=== PATIENT | female | born 1990 | race Caucasian/White ===

== ENCOUNTER 2021-04-10 15:18 | Inpatient (IN) ==
[2021-04-10] MEDS ORDERED: NORMAL SALINE 1,000 ML IV ONE (16:17)
--- NOTE | 2021-04-10 16:22 | ERNOTE ---
Abdominal HPI - Narrative Date of Service: 04/10/21 - General Chief Complaint: Abdominal Pain Time Seen by Provider: 04/10/21 15:55 Source: patient, RN notes reviewed Exam Limitations: clinical condition - Immun/Allergies/Home Medications Immunizatons: IMMUNIZATION HX Immunizations Up to Date Yes History of Influenza Vaccine No Hx Pneumococcal Vaccination No Allergies/Adverse Reactions: Allergies No Known Allergies Allergy (Verified 04/10/21 15:37) Home Medications: HOME MEDICATIONS NK 05/07/18 [Last Taken Unknown] - History of Present Illness Narrative: Sophie is a 31 yo female patient who presents to the ER in acute distress hollering out c/o severe abdominal pain and inability to urinate since this morning. Denies and assisted to the restroom with nursing assistance who called out for a bed and assistance. Date (Duration): 04/10/21 Timing: getting worse Quality: severe Activities at Onset: none Modifying Factors - (Improves): Present: other Social History: (Last Reviewed 04/10/21 @ 15:50 by SIA Coronel) Tobacco: Smoking Status: Current every day smoker Physical Exam - Physical Exam General Appearance: Present: alert, severe distress, anxious, crying Head Exam: Present: normal inspection, no evidence of injury Eye Exam: Normal inspection: bilateral, PERRL: bilateral Ears, Nose, Throat: Present: normal ENT inspection Neck: Present: normal inspection, nontender, supple, full range of motion Respiratory: Present: no respiratory distress, normal breath sounds, lungs clear. Absent: stridor Cardiovascular/Chest: Present: normal peripheral pulses - except Pedal Pulses 1+, tachycardia Gastrointestinal/Abdominal: Present: other - Gravid abdomen firm w/cramping c/o. Pelvic Exam: Present: other - fetus present at vaginal opening - See Progress notes. Back Exam: Present: normal range of motion Extremity Exam: Present: normal range of motion, extremity edema - Bilateral pitting edema. Absent: decreased range of motion, calf tenderness, bony tenderness Neurological Exam: Present: alert, oriented Skin Exam: Present: other - Pale . Absent: jaundice, skin rash Progress - Results and Orders Patient's Lab Results:: I have reviewed the patient's lab results. - Vital Signs Patient's Vital Signs:: I have reviewed the patient's vital signs. Vital Signs: Vital Signs 04/10/21 15:33 Temperature 36 C Pulse Rate 130 H Respiratory Rate 18 Blood Pressure 130/75 O2 Sat by Pulse Oximetry 98 - Progress/Reassessment Chief Complaint: Abdominal Pain Progress Note-Subjective: 04/10/21 15:50 Nurse called out for assistance in the bathroom as something was coming out of patient's vagina. Assisted pt. to bed in E-1 and purple colored round anatomy w/excoriated and sloughed skin extruding from vaginal opening. Dr. Saunders called to the bedside and OB staff and provider called by ER staff. Gentle downward pressure w/lubricating gel applied to lower perineum and patient pushed briefly and able to discern that fetus was complete breech w/o umbilical cord protrusion. Patient states she did not know that she was , that she did snort heroin this morning. Patient states that she felt abdominal cramping and was unable to urinate around 6am. Patient states she felt a gush of fluid that was bloody like a period and urine around 6am this morning. 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 Originally pt. stated she did not know if she had been before and clarified that this was her first . IV and fluids verbal order, along with labs. Observed 3+ pitting edema bilateral lower legs, lungs CTA bilaterally. Dr. Crowe arrived, followed by Dr. Manley who assumed care and delivery of fetus estimated prior to delivery to be approximately 30+ weeks. Assisted with patient positioning and pushing per directions of Dr. Crowe and OB staff, lab ordered per directions of Dr. Crowe. 04/10/21 16:30 Dr. Crowe caring for patient and waiting on delivery of placenta. Dr. Burch cared for infant upon delivery. Infant purple waste down on final delivery and remained full purple color w/o heartbeat or respirations. 04/10/21 17:30 Discussed patient case w/Dr. Crowe. w/parents and Nursing staff. Covid test ordered and Dr. Crowe will take patient to the OR since placenta has not delivered. Minimal blood loss present on delivery chucks. 04/10/21 17:45 Patient pale, states pain 7-8/10 vagina and abdomen. OB staff caring for patient. 140/75, 104, 22, SpO2 100% 04/10/21 17:56 OB staff call for assistance with patient reporting increase in blood from vaginal vault. Requested staff to call Dr. Crowe to come to the ER. Pitocin increased to 999mL/hr until Dr. Crowe at the bedside by OB staff per VO OB provider. Patient A&O x3, pale, no respiratory distress, fundus boggy - fundal massage by Nursing staff. Delivery chucks 200-300mL sanguinous fluid observed and Dr. Crowe quickly at bedside. Assisted with patient positioning under Dr. Crowe directions and attempt for patient to push and pass the placenta w/o success. Awaiting COVID test results, Dr. Crowe at bedside and ordered Pitocin at 30 milliunits/min for now. Plan - Plan Plan: DDx: , Spontaneous , Ruptured Uterus, UTI, Appendicitis. See Progress section. Precipitous breech delivery completed by Dr. Crowe. Concerned for eclampsia due to pitting edema and tachycardia discussed with Dr. Crowe, labs drawn and monitored for hemodynamic instability. Departure Clinical Impression: Precipitous delivery care insufficient Qualifiers: Trimester: unspecified trimester Qualified Code(s): O09.30 - Supervision of with insufficient care, unspecified trimester Complete breech presentation Qualifiers: Fetus number: single or unspecified fetus Qualified Code(s): O32.1XX0 - Maternal care for breech presentation, not applicable or unspecified - Departure Disposition: Still a patient Condition: Stable
[2021-04-10] MEDS ORDERED: LIDOCAINE HCL 50 ML VIAL ONE ×2 (16:23→18:10)
[2021-04-10] MEDS ORDERED: fentaNYL CITRATE/PF 50 MCG/ML AMPUL ONE ×2 (16:26→17:10)
[2021-04-10 16:45] LABS: Hematocrit 38.3 % (37.0-47.0); Hemoglobin 12.4 gm/dL (12.5-16.0); Mean Cell Volume 89.5 fl (78-100); Mean Corpuscular Hgb Conc 32.4 g/dl (32-36); Mean Platelet Volume 10.7 fl (8-12.5); Neutrophil # 18.8 K/mm3 (1.3-6.0); Platelet Count 245 K/mm3 (150-450); Red Blood Count 4.28 M/mm3 (4.2-5.4); Red Cell Distribution Width 13.6 % (11.5-14.0); White Blood Count 20.6 K/mm3 (4.0-10.5)
[2021-04-10 16:56] LABS: Albumin * 2.3 gm/dl (3.4-5.0); Anion Gap 16.4 mmol/L (6.8-13.8); BUN/Creatinine Ratio 9.3 (9.0-21.6); Bilirubin, Total 0.3 mg/dL (0.0-1.1); Ca. Corrected For Albumin 8.8 mg/dL (8.4-10.2); Calcium * 7.8 mg/dL (7.9-10.9); Carbon Dioxide 21.6 mmol/L (24-32.6); Magnesium 1.8 mg/dL (1.2-2.8); Total Protein 6.9 gm/dL (6.2-8.2)
[2021-04-10 16:58] LABS: Cocaine Ur Negative (NEGATIVE); Urine Barbiturate Negative (NEGATIVE); Urine PCP Negative (NEGATIVE); Urine THC Negative (NEGATIVE)
[2021-04-10 16:59] LABS: Urine Appearance Clear (CLEAR); Urine Bilirubin Negative (NEGATIVE); Urine Blood Negative /ul (NEGATIVE); Urine Color Yellow; Urine Specific Gravity 1.025 SP.GR. (1.005-1.010)
[2021-04-10 16:59] LABS: Urine Benzodiazepines Positive (NEGATIVE); Urine Opiates Positive (NEGATIVE)
[2021-04-10 17:00] LABS: Urine Bacteria None Seen; Urine Ketone 5 mg/dL (NEGATIVE); Urine Nitrite Negative (NEGATIVE); Urine Protein Negative (NEGATIVE); Urine RBC 0-5 /hpf (0-5); Urine Urobilinogen Normal (NORMAL); Urine WBC 0-5 /hpf (0-5)
[2021-04-10] MEDS ORDERED: fentaNYL CITRATE/PF 50 MCG/ML AMPUL IV ONE (17:03)
[2021-04-10 17:06] LABS: Random Urine Total Protein 19.3 mg/dL (0-12)
[2021-04-10] MEDS ORDERED: LIDOCAINE HCL 20 ML VIAL ONE (17:16)
[2021-04-10] MEDS ORDERED: ROCURONIUM BROMIDE 10 MG/ML VIAL ONE (17:17)
[2021-04-10] MEDS ORDERED: SUCCINYLCHOLINE CHLORIDE 20 MG/ML VIAL ONE (17:17)
[2021-04-10] MEDS ORDERED: NEOSTIGMINE METHYLSULFATE 1 MG/ML VIAL ONE (17:17)
[2021-04-10] MEDS ORDERED: ONDANSETRON HCL/PF 2 MG/ML VIAL ONE (17:17)
[2021-04-10] MEDS ORDERED: GLYCOPYRROLATE 0.2 MG/ML VIAL ONE (17:17)
[2021-04-10] MEDS ORDERED: PROPOFOL VIAL IV ONE (17:17)
[2021-04-10 17:30] LABS: Hemoglobin A1C 5.5 % (3.80-5.60)
--- NOTE | 2021-04-10 17:57 | HP ---
Chief Complaint - Chief Complaint Date of Service: 04/10/21 Time of Service: 17:34 Chief Complaint: abdominal/vaginal pain History of Present Illness: Called stat to ER at 1559 by nurse stating " breech delivery in ER and need you now." 31 yo with unknown LMP presented to ER complaining of severe lower abdominal/vaginal pain.When she was assisted to the bathroom a dark purple bulge was seen between her legs. At that time, it was uncertain whether it was head or buttocks. Patient did not know she was . She states she has not been able to urinate since this morning. She last ate around 0600 this am. She admits to using methamphetamine yesterday and heroin this morning. Shortly after using this am, she had a watery discharge and then began having abdominal pain/cramps. When I arrived at the ER, the ER provider was attending the . The buttocks was delivered to the hips. There was extensive ecchymosis and edema with a 4cm ring of significant caput on the right buttocks of the fetus. I encouraged patient to push and the fetus was delivered to the shoulders. I swept each arm down across the chest and noted head entrapement despite keeping the head flexed and body down. Piper forceps were applied and the head was easily delivered. It took approximately 1-2 minutes to get the forceps applied due to the patient writhing on the ER bed. The fetus was limp with no movement, respirations, or palpable pulse from the umbilical cord. Developer Designer, Dr. Burch was present and thought he might have felt a pulse and so resuscitation was briefly started until it was apparent that the fetus had been for some time. The patient was started on IV pitocin at 20 mu/min after delivery of fetus. The placenta had still not delivered after one hour from , so preparations were made for manual extraction of placenta in OR. Social History: (Last Updated 04/10/21 @ 18:05 by Salomón Crowe DO) Tobacco: Smoking Status: Current every day smoker tobacco type: cigarettes Smoking cigarettes per day: 10 Smoking risk assessment performed?: No Substance Use: substance use type: heroin counseling given: No Review Of Systems (GEN) - Review of Systems Generalized/Overall Review: Present: No Symptoms Reported EENTM: Present: No Symptoms Reported Respiratory: Present: No Symptoms Reported Cardiac: Present: No Symptoms Reported Abdominal: Present: Abdominal Pain Genitourinary: Present: Other - unable to urinate since this am Musculoskeletal: Present: No Symptoms Reported Neurological: Present: No Symptoms Reported Skin: Present: No Symptoms Reported Endocrine: Present: No Symptoms Reported Immunizations: IMMUNIZATION HX Immunizations Up to Date Yes History of Influenza Vaccine No Hx Pneumococcal Vaccination No Allergies/Adverse Reactions: Allergies Allergy/AdvReac Type Severity Reaction Status Date / Time No Known Allergies Allergy Verified 04/10/21 15:37 Home Medications: HOME MEDICATIONS NK 05/07/18 [Last Taken Unknown] Exam - Exam Vital Signs: Vital Signs - Last Taken Temp 36 C 04/10/21 15:33 Pulse 130 H 04/10/21 15:33 Resp 18 04/10/21 15:33 BP 130/75 04/10/21 15:33 Pulse Ox 98 04/10/21 15:33 Constitutional: Present: Alert, Oriented x3, Moderate distress ENT Exam: Present: hearing grossly normal Neck: Present: non-tender Breasts: Present: Exam deferred Respiratory: Present: lungs clear, no respiratory distress Cardiovascular/Chest: Present: tachycardia, edema - bilateral [facility] to [facility] Abdomen: Present: soft, no rebound tenderness, other - Uterus at umbilicus. /Rectal: Present: Other - cervix was fully dilated with body 1[address], presenting in josué breech. Extremity: Present: no calf tenderness, lower extremity edema Skin Exam: Present: warm/dry, no cyanosis, pallor, other - erythematous venous needle tracks on right lower arm. Neurologic: Present: alert, oriented x 3, other - anxious, tearful, and agitated, but trying to be cooperative Appearance: Present: appropriate appearance, impaired insight Eye contact: Present: cooperative, good eye contact Thoughts: Present: normal thought pattern, normal mood /affect - appropriate for situation Diagnostic Studies: Abnormal Lab Results 04/10/21 04/10/21 04/10/21 Range/Units 16:29 16:30 16:30 WBC 20.6 H (4.0-10.5) K/mm3 Hgb 12.4 L (12.5-16.0) gm/dL Immature Gran % (Auto) 0.70 H (0.001-0.429) % Immature Gran # (Auto) 0.14 H (0.000-0.0310) K/mm3 Neutrophils % 91.0 H (42-75.0) % Lymphocytes % 4.6 L (20-51) % Neutrophils # 18.8 H (1.3-6.0) K/mm3 Lymphocytes # 0.94 L (1.5-3.5) k/mm3 Potassium 3.0 L (3.4-4.6) mmol/L Carbon Dioxide 21.6 L (24-32.6) mmol/L Anion Gap 16.4 H (6.8-13.8) mmol/L Random Glucose 130 H (70-110) mg/dL Calcium 7.8 L (7.9-10.9) mg/dL ALT 14 L (19-67) U/L Alkaline Phosphatase 199 H (50-170) U/L Albumin 2.3 L (3.4-5.0) gm/dl U Random Total Protein 19.3 H (0-12) mg/dL Urine Opiates Screen (NEGATIVE) Urine Amphetamine (NEGATIVE) U Benzodiazepines Scrn (NEGATIVE) 04/10/21 Range/Units 16:35 WBC (4.0-10.5) K/mm3 Hgb (12.5-16.0) gm/dL Immature Gran % (Auto) (0.001-0.429) % Immature Gran # (Auto) (0.000-0.0310) K/mm3 Neutrophils % (42-75.0) % Lymphocytes % (20-51) % Neutrophils # (1.3-6.0) K/mm3 Lymphocytes # (1.5-3.5) k/mm3 Potassium (3.4-4.6) mmol/L Carbon Dioxide (24-32.6) mmol/L Anion Gap (6.8-13.8) mmol/L Random Glucose (70-110) mg/dL Calcium (7.9-10.9) mg/dL ALT (19-67) U/L Alkaline Phosphatase (50-170) U/L Albumin (3.4-5.0) gm/dl U Random Total Protein (0-12) mg/dL Urine Opiates Screen Positive H (NEGATIVE) Urine Amphetamine Positive H (NEGATIVE) U Benzodiazepines Scrn Positive H (NEGATIVE) Laboratory Results WBC 20.6 K/mm3 (4.0-10.5) H 04/10/21 16:30 RBC 4.28 M/mm3 (4.2-5.4) 04/10/21 16:30 Hgb 12.4 gm/dL (12.5-16.0) L 04/10/21 16:30 Hct 38.3 % (37.0-47.0) 04/10/21 16:30 MCV 89.5 fl (78-100) 04/10/21 16:30 MCH 29.0 pg (27-31) 04/10/21 16:30 MCHC 32.4 g/dl (32-36) 04/10/21 16:30 RDW 13.6 % (11.5-14.0) 04/10/21 16:30 Plt Count 245 K/mm3 (150-450) 04/10/21 16:30 MPV 10.7 fl (8-12.5) 04/10/21 16:30 Immature Gran % (Auto) 0.70 % (0.001-0.429) H 04/10/21 16:30 Immature Gran # (Auto) 0.14 K/mm3 (0.000-0.0310) H 04/10/21 16:30 Neutrophils % 91.0 % (42-75.0) H 04/10/21 16:30 Lymphocytes % 4.6 % (20-51) L 04/10/21 16:30 Monocytes % 3.4 % (0.0-9) 04/10/21 16:30 Eosinophils % 0.1 % (0.0-3.0) 04/10/21 16:30 Basophils % 0.2 % (0.0-1.0) 04/10/21 16:30 Nucleated RBC % 0.0 k/mm3 (0-1) 04/10/21 16:30 Neutrophils # 18.8 K/mm3 (1.3-6.0) H 04/10/21 16:30 Lymphocytes # 0.94 k/mm3 (1.5-3.5) L 04/10/21 16:30 Monocytes # 0.7 k/mm3 (0.0-1.0) 04/10/21 16:30 Eosinophils # 0.0 k/mm3 (0.0-0.7) 04/10/21 16:30 Absolute Basophils 0.0 k/mm3 (0.0-0.1) 04/10/21 16:30 Sodium 139 mmol/L (132-142) 04/10/21 16:30 Plasma Sodium 139 mmol/L (130-142) 04/10/21 16:30 Potassium 3.0 mmol/L (3.4-4.6) L 04/10/21 16:30 Chloride 104 mmol/L (97-106) 04/10/21 16:30 Carbon Dioxide 21.6 mmol/L (24-32.6) L 04/10/21 16:30 Anion Gap 16.4 mmol/L (6.8-13.8) H 04/10/21 16:30 BUN 7 mg/dL (3-23) 04/10/21 16:30 Creatinine 0.75 mg/dL (0.4-1.4) 04/10/21 16:30 Est GFR (Non-Af Amer) 95 mL/min (60-130) 04/10/21 16:30 BUN/Creatinine Ratio 9.3 (9.0-21.6) 04/10/21 16:30 Random Glucose 130 mg/dL (70-110) H 04/10/21 16:30 Mean Blood Glucose 111 mg/dL 04/10/21 16:30 Hemoglobin A1c 5.5 % (3.80-5.60) 04/10/21 16:30 Calcium 7.8 mg/dL (7.9-10.9) L 04/10/21 16:30 Calcium Adj for Albumin 8.8 mg/dL (8.4-10.2) 04/10/21 16:30 Magnesium 1.8 mg/dL (1.2-2.8) 04/10/21 16:30 Total Bilirubin 0.3 mg/dL (0.0-1.1) 04/10/21 16:30 AST 18 U/L (0-48) 04/10/21 16:30 ALT 14 U/L (19-67) L 04/10/21 16:30 Alkaline Phosphatase 199 U/L (50-170) H 04/10/21 16:30 Total Protein 6.9 gm/dL (6.2-8.2) 04/10/21 16:30 Albumin 2.3 gm/dl (3.4-5.0) L 04/10/21 16:30 Urine Color Yellow 04/10/21 16:30 Urine Appearance Clear (CLEAR) 04/10/21 16:30 Urine pH 6.0 pH (5.0-7.0) 04/10/21 16:30 Ur Specific [place] 1.025 SP.GR. (1.005-1.010) 04/10/21 16:30 Urine Protein Negative mg/dL (NEGATIVE) 04/10/21 16:30 Urine Glucose (UA) Negative mg/dL (NEGATIVE) 04/10/21 16:30 Urine Ketones 5 mg/dL (NEGATIVE) 04/10/21 16:30 Urine Blood Negative /ul (NEGATIVE) 04/10/21 16:30 Urine Nitrate Negative (NEGATIVE) 04/10/21 16:30 Urine Bilirubin Negative mg/dl (NEGATIVE) 04/10/21 16:30 Urine Urobilinogen Normal EU/dl (NORMAL) 04/10/21 16:30 Ur Leukocyte Esterase Negative /ul (NEGATIVE) 04/10/21 16:30 Urine RBC 0-5 /hpf (0-5) 04/10/21 16:30 Urine WBC 0-5 /hpf (0-5) 04/10/21 16:30 Ur Epithelial Cells 0-5 /hpf (0-5) 04/10/21 16:30 Urine Bacteria None seen (NONE) 04/10/21 16:30 Urine Culture Comments No culture indicated 04/10/21 16:30 Ur Random Creatinine 158.0 mg/dL (60-200) 04/10/21 16:29 U Random Total Protein 19.3 mg/dL (0-12) H 04/10/21 16:29 U [place] Prot/Creat Ratio 122 mg/gm (0-199) 04/10/21 16:29 Urine Opiates Screen Positive (NEGATIVE) H 04/10/21 16:35 Barbiturate Screen Negative (NEGATIVE) 04/10/21 16:35 Ur Phencyclidine Scrn Negative (NEGATIVE) 04/10/21 16:35 Urine Amphetamine Positive (NEGATIVE) H 04/10/21 16:35 U Benzodiazepines Scrn Positive (NEGATIVE) H 04/10/21 16:35 Urine Cocaine Screen Negative (NEGATIVE) 04/10/21 16:35 Urine Marijuana (THC) Negative (NEGATIVE) 04/10/21 16:35 Assessment/Plan - Assessment/Plan (1) Retained placenta without hemorrhage Assessment: Risk, benefits, and alternatives to manual extraction of placenta and repair of possible vaginal and/or cervical lacerations discussed with patient. Will take back to the OR for above-mentioned procedures. Informed consent obtained. All questions answered. Problem: Acute (2) No care in current Problem: Acute Qualifiers: Trimester: third trimester Qualified Code(s): O09.33 - Supervision of with insufficient care, third trimester (3) Stillbirth with antepartum Problem: Acute (4) Heroin abuse complicating Problem: Acute Qualifiers: Trimester: third trimester Qualified Code(s): O99.323 - Drug use complicating , third trimester; F11.10 - Opioid abuse, uncomplicated (5) Methamphetamine abuse Problem: Acute (6) Head entrapment during breech delivery Problem: Resolved Qualifiers: Fetus number: single or unspecified fetus Qualified Code(s): O64.1XX0 - Obstructed labor due to breech presentation, not applicable or unspecified (7) Assisted breech delivery Problem: Resolved Qualifiers: Fetus number: single or unspecified fetus Qualified Code(s): O32.1XX0 - Maternal care for breech presentation, not applicable or unspecified
[2021-04-10] MEDS ORDERED: ceFAZolin SODIUM 1 GM VIAL ONE (18:10)
[2021-04-10] MEDS ORDERED: ceFAZolin SODIUM 2 GM in DEXTROSE 5 % IN WATER 50 ML IV PRN ×2 (18:25)
[2021-04-10] MEDS ORDERED: ceFAZolin SODIUM 2 GM in DEXTROSE 5 % IN WATER 50 ML IV ONE ×2 (18:45)
--- NOTE | 2021-04-10 19:09 | ANES ---
Anesthesia Pre Procedure Eval Vitals/Labs: Last Vital Signs Temp 36.6 C 04/10/21 19:00 Pulse 122 H 04/10/21 19:07 Resp 28 H 04/10/21 19:07 BP 108/71 04/10/21 19:05 Pulse Ox 100 04/10/21 19:07 Hemoglobin A1c 5.5 % (3.80-5.60) 04/10/21 16:30 HOME MEDICATIONS NK 05/07/18 [Last Taken Unknown] Allergies/Adverse Reactions: Allergies Allergy/AdvReac Type Severity Reaction Status Date / Time No Known Allergies Allergy Verified 04/10/21 15:37 - Planned Procedure Planned Procedure: abd pain Medication List Reviewed:: Yes Allergies Verified: Yes - Family Anesthesia History Family History:: no untoward family reactions to anesthesia, no familial bleeding tendencies, no family history of clotting disorders, no family history of premature - Airway/Neck/Teeth Within Normal Limits:: Yes - loose teeth Teeth Condition: intact Mallampatti Score: 2 Thyromental (T-M) distance: > 6 cm Mandibulo Hyoid distance: > 3 cm - Respiratory Respiratory Physical: lungs clear Smoking Status: Current every day smoker Discussed smoking cessation including day of surgery: Yes Sleep Apnea currently treated: No Sleep Apnea by current assessment: No Discussed Risks/Treatment of KORI: No - Cardiovascular Tolerate Activity: Fair Heart Sounds: S1 & S2, Regular - Gastrointestinal NPO since: 1300 - Anesthesia Assessment and Plan ASA Class: PS, II, E Anesthesia Type Plan: General ET
--- NOTE | 2021-04-10 19:09 | ANES ---
Post Anesthesia Discharge - Transfer of Care Transfer of Care handoff given to nurse: Yes - Discharge from PACU Discharge from PACU when meets criteria: Yes - Discharge to ASU Discharge to ASU-no complications/pt stable: Yes
--- NOTE | 2021-04-10 19:15 | OR ---
Operative Report - Dictated Report Narrative: DATE OF PROCEDURE: 04/10/2021 INDICATION: 31-year-old 1 para 1 with retained placenta and hemorrhage brought to the OR for manual extraction of placenta. PREOPERATIVE DIAGNOSIS: Retained placenta with possible vaginal lacerations POSTOPERATIVE DIAGNOSIS: Spontaneous delivery of placenta in OR with retained membranes. 2 cm second-degree vaginal laceration. PROCEDURE: Spontaneous delivery of placenta. Manual exploration of uterine cavity. Curettage of uterine cavity with banjo curette. Repair of second- degree vaginal laceration. SURGEON: Stephan Crowe D.O. ROLLER PRESSER OPERATOR: OR staff ANESTHESIA: General ESTIMATED BLOOD LOSS: 100 mL URINE OUTPUT: Not recorded FLUID REPLACEMENT: 1300 mL FINDINGS: Normal appearing late placenta with large amount of clots behind placenta. 2 cm second-degree vaginal laceration at 6 o'clock position. Ecchymosis of the vaginal sidewalls bilaterally. SPECIMEN(S): Placenta with clots/membranes TECHNIQUE: Patient was taken to the operating room and placed in dorsal lithotomy position after adequate general anesthesia was obtained. IV Pitocin was hung and running at 30 milliunits/min. With gentle tug on the umbilical cord, the placenta delivered spontaneously followed by a large amount of clotted blood. The placenta appeared complete and intact. A gentle sweep of the uterine cavity was made removing a moderate amount of blood clots. Because the patient started to have brisk bleeding, a banjo curette was inserted into the uterine cavity and gentle curettage was performed throughout the entire uterine cavity removing a small amount of amniotic membranes. Minimal bleeding was noted afterwards. Survey of the cervix and vagina revealed only a small second- degree vaginal laceration with mild bruising noted on the vaginal sidewalls. The vaginal laceration was repaired with 3-0 Vicryl Rapide. All instruments were removed from the cervix and vagina. Sponge, lap, instrument, needle count correct x 2. DISPOSITION: The patient was transferred to postanesthesia care unit in good condition.
--- NOTE | 2021-04-10 19:15 | ANES ---
Post Anesthesia Assessment - Vital Signs Vitals: Last Vital Signs Temp 36.6 C 04/10/21 19:00 Pulse 122 H 04/10/21 19:10 Resp 28 H 04/10/21 19:10 BP 102/66 04/10/21 19:10 Pulse Ox 99 04/10/21 19:10 Airway Patency: Normal - Mental Status Level Of Consciousness: Awake - Pain Level Pain Score: 6 - N/V Assessment Nausea/Vomiting Presence: None Dehydration:: No
[2021-04-10] MEDS ORDERED: BENZOCAINE/MENTHOL 81 SPRAY CAN TP PRN (19:23)
[2021-04-10] MEDS ORDERED: OXYTOCIN/0.9 % SODIUM CHLORIDE 30 UNITS/500 ML BAG IV ONE (19:23)
[2021-04-10] MEDS ORDERED: GLYCERIN/WITCH HAZEL LEAF 40 APPL BOX TP PRN (19:23)
[2021-04-10] MEDS ORDERED: BISACODYL 10 MG SUPP.RECT RC PRN (19:23)
[2021-04-10] MEDS ORDERED: SENNOSIDES 8.6 MG TABLET PO PRN (19:23)
[2021-04-10] MEDS ORDERED: ACETAMINOPHEN 325 MG TABLET PO PRN (19:23)
[2021-04-10] MEDS ORDERED: HYDROCORTISONE 30 APPL TUBE TP PRN (19:23)
[2021-04-10] MEDS: IBUPROFEN 800 MG TABLET PO PRN (20:05)
[2021-04-10] MEDS: oxyCODONE HCL/ACETAMINOPHEN 1 TAB TABLET PO PRN (20:05)
--- NOTE | 2021-04-10 22:15 | CONS ---
- Reason for consultation (1) Complete breech presentation Reason for Consultation:: I was the nanotechnologist correctional probation officer when the attending OB requested my presence for a delivery in the ER. I arrived a few seconds after the infant was delivered vaginally. Shortly after I arrived the cord was clamped and cut. was immediately transferred to warmer and noted to be severely mottled with multiple shades of discoloration mostly including blue purple but some white and yellow- tyrell patches. No spontaneous respiratory effort or movement noted. There was no palpable umbilical pulse or brachial pulse and heart sounds were not appreciated. Infant received a very brief episode of PPV and compressions lasting less than 60 seconds. As we continued with the code I noted moderate sloughing of skin particularly on the buttocks, lower back and thighs. Given the infant's exam and concerning history for stillborn I advised the team to stop resuscitation efforts. The 's face was gently cleaned with a wet rag, the infant was wrapped and brought to mom to be held. HPI - History of Present Illness Allergies/Adverse Reactions: Allergies No Known Allergies Allergy (Verified 04/10/21 15:37) Home Medications: Home Medications Medication Instructions Recorded Last Taken NK 05/07/18 Unknown Procedures Injection of anesthetic into spinal canal for analgesia (12/01/11) Injection of other agent into spinal canal (12/01/11) Injection of steroid (12/01/11) Medications - Medications Current Medications: Current Medications Ibuprofen (Ibuprofen 800 Mg Tablet) 800 mg PO Q6H PRN PRN Reason: Moderate Pain (pain scale 4-6) Stop: 05/10/21 19:24 Last Admin: 04/10/21 20:05 Dose: 800 mg Documented by: Oxycodone/Acetaminophen (Oxycodone Hcl/Acetaminophen 1 Tab Tablet) 1 tab PO Q3H PRN PRN Reason: Severe Pain (pain scale 7-10) Stop: 05/10/21 19:24 Last Admin: 04/10/21 20:05 Dose: 1 tab Documented by: Physical Examination - Exam Vital Signs: Vital Signs - Last Taken Temp 36.7 C 04/10/21 19:23 Pulse 109 H 04/10/21 21:14 Resp 18 04/10/21 21:14 BP 112/67 04/10/21 21:14 Pulse Ox 100 04/10/21 21:14 O2 Oxygen Delivery Method Room Air - Results and Findings: Lab/Microbiology results last 24 hrs: Abnormal/Pending Laboratory Last 24 HRS 04/10/21 04/10/21 04/10/21 16:35 16:30 16:30 WBC 20.6 H Hgb 12.4 L Immature Gran % (Auto) 0.70 H Immature Gran # (Auto) 0.14 H Neutrophils % 91.0 H Lymphocytes % 4.6 L Neutrophils # 18.8 H Lymphocytes # 0.94 L Potassium 3.0 L Carbon Dioxide 21.6 L Anion Gap 16.4 H Random Glucose 130 H Calcium 7.8 L ALT 14 L Alkaline Phosphatase 199 H Albumin 2.3 L U Random Total Protein Urine Opiates Screen Positive H Urine Amphetamine Positive H U Benzodiazepines Scrn Positive H 04/10/21 16:29 WBC Hgb Immature Gran % (Auto) Immature Gran # (Auto) Neutrophils % Lymphocytes % Neutrophils # Lymphocytes # Potassium Carbon Dioxide Anion Gap Random Glucose Calcium ALT Alkaline Phosphatase Albumin U Random Total Protein 19.3 H Urine Opiates Screen Urine Amphetamine U Benzodiazepines Scrn - Assessments/Findings (1) Complete breech presentation Problem: Acute Qualifiers: Fetus number: single or unspecified fetus Qualified Code(s): O32.1XX0 - Maternal care for breech presentation, not applicable or unspecified (2) Precipitous delivery Problem: Acute (3) Stillbirth with antepartum Problem: Acute
[2021-04-10] MEDS: DOCUSATE SODIUM 100 MG CAPSULE PO SCH (23:23)
[2021-04-11] MEDS: oxyCODONE HCL/ACETAMINOPHEN 1 TAB TABLET PO PRN (04:01)
[2021-04-11] MEDS: IBUPROFEN 800 MG TABLET PO PRN (04:01)
[2021-04-11 08:34] VITALS: BP 105/57
[2021-04-11] MEDS ORDERED: POTASSIUM CHLORIDE 20 MEQ TABLET.SA PO SCH (09:00)
--- NOTE | 2021-04-11 13:28 | PN ---
Subjective - Date and Time Seen Date: 04/11/21 Time: 13:13 Objective - Vitals Vitals: Last Vital Signs Temp 36.4 C 04/11/21 08:31 Pulse 91 04/11/21 08:31 Resp 16 04/11/21 08:31 BP 105/57 04/11/21 08:31 Pulse Ox 98 04/11/21 08:31 Patient has been sleeping most of the day. Mild to moderate cramping. [Lochia wnl] Abdomen - soft Uterus - [firm, at umbilicus - 1] No calf tenderness Impression: day #1 - s/p forcep assisted breech delivery for head entrapment of stillbirth with curettage for retained placental fragments and repair of small second-degree vaginal laceration. Plan: Discharged to home. Follow-up in 1 week. Patient instructed to monitor and call for signs symptoms of endometritis. Patient is working with her nurse to review her options and decide on management of her baby. - Abnormal Lab Findings Abnormal Lab Findings: Abnormal Lab Results 04/10/21 04/10/21 04/10/21 Range/Units 16:29 16:30 16:30 WBC 20.6 H (4.0-10.5) K/mm3 Hgb 12.4 L (12.5-16.0) gm/dL Immature Gran % (Auto) 0.70 H (0.001-0.429) % Immature Gran # (Auto) 0.14 H (0.000-0.0310) K/mm3 Neutrophils % 91.0 H (42-75.0) % Lymphocytes % 4.6 L (20-51) % Neutrophils # 18.8 H (1.3-6.0) K/mm3 Lymphocytes # 0.94 L (1.5-3.5) k/mm3 Potassium 3.0 L (3.4-4.6) mmol/L Carbon Dioxide 21.6 L (24-32.6) mmol/L Anion Gap 16.4 H (6.8-13.8) mmol/L Random Glucose 130 H (70-110) mg/dL Calcium 7.8 L (7.9-10.9) mg/dL ALT 14 L (19-67) U/L Alkaline Phosphatase 199 H (50-170) U/L Albumin 2.3 L (3.4-5.0) gm/dl U Random Total Protein 19.3 H (0-12) mg/dL Urine Opiates Screen (NEGATIVE) Urine Amphetamine (NEGATIVE) U Benzodiazepines Scrn (NEGATIVE) 04/10/21 Range/Units 16:35 WBC (4.0-10.5) K/mm3 Hgb (12.5-16.0) gm/dL Immature Gran % (Auto) (0.001-0.429) % Immature Gran # (Auto) (0.000-0.0310) K/mm3 Neutrophils % (42-75.0) % Lymphocytes % (20-51) % Neutrophils # (1.3-6.0) K/mm3 Lymphocytes # (1.5-3.5) k/mm3 Potassium (3.4-4.6) mmol/L Carbon Dioxide (24-32.6) mmol/L Anion Gap (6.8-13.8) mmol/L Random Glucose (70-110) mg/dL Calcium (7.9-10.9) mg/dL ALT (19-67) U/L Alkaline Phosphatase (50-170) U/L Albumin (3.4-5.0) gm/dl U Random Total Protein (0-12) mg/dL Urine Opiates Screen Positive H (NEGATIVE) Urine Amphetamine Positive H (NEGATIVE) U Benzodiazepines Scrn Positive H (NEGATIVE) Assessment/Plan - Problems/Diagnosis (1) Stillbirth with antepartum Problem: Acute (2) Retained placenta without hemorrhage Problem: Resolved (3) No care in current Problem: Acute Qualifiers: Trimester: third trimester Qualified Code(s): O09.33 - Supervision of with insufficient care, third trimester (4) Heroin abuse complicating Problem: Acute Qualifiers: Trimester: third trimester Qualified Code(s): O99.323 - Drug use compli cating , third trimester; F11.10 - Opioid abuse, uncomplicated (5) Methamphetamine abuse Problem: Acute (6) Head entrapment during breech delivery Problem: Resolved Qualifiers: Fetus number: single or unspecified fetus Qualified Code(s): O64.1XX0 - Obstructed labor due to breech presentation, not applicable or unspecified (7) Assisted breech delivery Problem: Resolved Qualifiers: Fetus number: single or unspecified fetus Qualified Code(s): O32.1XX0 - Maternal care for breech presentation, not applicable or unspecified
[2021-04-11] MEDS: DOCUSATE SODIUM 100 MG CAPSULE PO SCH (13:52)
--- NOTE | 2021-04-11 19:23 | DS ---
OB Discharge Summary (1) Stillbirth with antepartum Status: Acute (2) Retained placenta without hemorrhage Status: Resolved (3) No care in current Status: Acute Qualifiers: Trimester: third trimester Qualified Code(s): O09.33 - Supervision of with insufficient care, third trimester (4) Heroin abuse complicating Status: Acute Qualifiers: Trimester: third trimester Qualified Code(s): O99.323 - Drug use complicating , third trimester; F11.10 - Opioid abuse, uncomplicated (5) Methamphetamine abuse Status: Acute (6) Head entrapment during breech delivery Status: Resolved Qualifiers: Fetus number: single or unspecified fetus Qualified Code(s): O64.1XX0 - Obstructed labor due to breech presentation, not applicable or unspecified (7) Assisted breech delivery Status: Resolved Qualifiers: Fetus number: single or unspecified fetus Qualified Code(s): O32.1XX0 - Maternal care for breech presentation, not applicable or unspecified Delivery Date: 04/10/21 Delivery Time: 16:11 :: 1 Para:: 1 Gestational weeks:: 34 Intrapartum Procedures: Delivered, Forceps (Outlet) Procedures: Antibiotics1, Curettage, Other - repair of vaginal laceration /OP Complications: Retained Placenta, Other - 2 cm 2nd degree vaginal laceration Discharge Diagnosis: Premature Labor, Delivery - Discharge Information Date of Discharge: 04/11/21 Hospital Course: 31-year-old 1 now para 1 presented to the emergency room for abdominal pain unaware that she was about 34 weeks and in labor. As she was assisted by the nurse to the restroom she began to deliver the infant in josué breech presentation. She was quickly returned to the cot and the ER provider was attending the . I received an emergency call at [phone] asking for assistance for breech delivery in the emergency room. With the aid of maternal pushing the baby was delivered to the shoulders. Despite maintaining the head in flexion, entrapment was encountered and Piper forceps were used to aid in delivery. The patient was screaming and kicking which made application of the forceps difficult. On the second attempt, the Piper forceps were applied and the head was easily delivered. There was no movement or palpable heartbeat. The entire body was mottled white/dark blue/purple. There were no obvious malformations or cord entanglement. After 2 and half hours the placenta had not yet delivered. For this reason the patient was taken to the OR for manual extraction of placenta. During intubation the patient coughed and the placenta was expelled. Manual sweeping of the uterus revealed some retained membranes. The patient began having profuse bleeding shortly thereafter so curettage was performed removing more membranes. Bleeding quickly subsided. A small 2 cm second-degree vaginal laceration was repaired with 3-0 Vicryl Rapide. The patient was transferred to floor for post delivery care which was uncomplicated. She was discharged to home on day #1 with instructions to follow-up in the office in 1 week and call for signs/symptoms of endometritis. Discharge Location: Home Disposition: Home self-care Condition: Stable Activity on Discharge:: Activity as tolerated, Pelvic Rest Discharge Diet: General/regular food Additional Patient Instructions (free text): Sophie, your follow up appointment is April 18 at 1:15 PM. Please don't hesitate to call with questions or concerns. [facility] - [phone] [facility] [phone]. They can guide you to counselors. Complete Home Medications List: Complete Home Medication List: NK 05/07/18 - Plan Discharge to:: Home Follow up in office in:: 1 week - Information Weight (Grams): 2,236 Sex: Male Score 1 min: 0 Score 5 min: 0 Complications: Other Other Complications: stillborn.
[2021-04-12 18:51] LABS: Hep B Surface Antigen Confirm DNR
[2021-04-13 09:44] LABS: Hepatitis B Surface Antigen NON-REACTIVE (NON-REACTIVE)
== END 2021-04-11 20:00 | disposition home or self-care (01) | DRG 806 ==
LOC: ER 15:18 → OB 16:43 → MS 04-11 15:59
PROVIDERS: ADMIT Obstetrics & Gynecology; ATTEND Obstetrics & Gynecology
PROC: [UNRECOGNIZED PROCEDURE] (2021-04-10 17:40)
DX: Z3A.00 Weeks of gestation of pregnancy not specified; O70.1 Second degree perineal laceration during delivery; O73.0 Retained placenta without hemorrhage; O99.324 Drug use complicating childbirth; O64.1XX0 Obstructed labor due to breech presentation, not applicable or unspecified; O99.334 Smoking (tobacco) complicating childbirth; F11.90 Opioid use, unspecified, uncomplicated; F17.210 Nicotine dependence, cigarettes, uncomplicated; Z37.1 Single stillbirth; F15.90 Other stimulant use, unspecified, uncomplicated; O62.3 Precipitate labor